=== PATIENT | male | born 1985 | race African-American/Black ===

== ENCOUNTER 2025-02-10 14:43 | Observation (INO) | payer OTHER ==
[~2025-02-10] VITALS: Ht 193 cm; Wt 92.6 kg
[2025-02-10 15:50] LABS: BASO # 0.0 10^3/uL (0.0-0.2); BASO % 0.5 % (0.0-1.0); EOS # 0.0 10^3/uL (0.0-0.5); EOS % 0.5 % (0.0-3.0); LYMPH # 1.1 10^3/uL (1.5-5.0); LYMPH % 27.0 % (24.0-44.0); MONO # 0.3 10^3/uL (0.0-0.8); MONO % 8.4 % (2.0-8.0); NEUTROPHILS # 2.6 10^3/uL (1.5-8.5); NEUTROPHILS % 63.4 % (36.0-66.0); PLATELET COUNT, AUTOMATED 274 10^3/uL (150-450)
[2025-02-10 16:04] LABS: INR 1.11
[2025-02-10 16:16] LABS: ALT/SGPT 50 U/L (7.0-40); AST/SGOT 37 U/L (<34); CALCIUM LEVEL 9.4 MG/DL (8.5-10.1); CARBON DIOXIDE LEVEL 26 MMOL/L (20-31); CHLORIDE LEVEL 104 MMOL/L (98-107); CREATININE FOR GFR 0.95 MG/DL (0.70-1.30); GLOMERULAR FILTRATION RATE > 90.0 (>60); POTASSIUM SERUM 3.8 MMOL/L (3.5-5.1); SODIUM LEVEL 138 MMOL/L (136-145)
[2025-02-10 16:36] LABS: LDH LACTATE DEHYDROGENASE 208 U/L (120-246)
[2025-02-10 16:47] LABS: IRON (FE) 70 UG/DL (65-175); PERCENT SATURATION 27.2 % (19.7-50.0)
[2025-02-10 16:50] LABS: VITAMIN B12 LEVEL 528 PG/ML (211-911)
[2025-02-10 17:16] LABS: SICKLE CELL SCREEN POSITIVE (NEGATIVE)
[2025-02-10] MEDS ORDERED: HOME MED LIST COMPLETE! XX SCH (17:30)
[2025-02-10] MEDS ORDERED: ACETAMINOPHEN 325 MG TAB PO PRN (17:45)
[2025-02-10] MEDS ORDERED: MOM 30 ML SUSPENSION UDC PO PRN (17:45)
[2025-02-10] MEDS ORDERED: MAALOX 30 ML SUSP *UDC PO PRN (17:45)
[2025-02-10 18:47] LABS: C REACTIVE PROTEIN QUANTITATIV < 0.50 MG/DL (<1.0); CPK CREATINE PHOSPHOKINASE 63 U/L (46-171)
[2025-02-10 19:28] LABS: HEPATITIS C VIRUS ABY INDEX 0.03 INDEX (<0.8)
[2025-02-10 19:45] VITALS: BP 135/73; TEMP 97.2; O2SAT 98
[2025-02-10] MEDS: DOCUSATE SODIUM 100 MG CAPSULE PO SCH (20:11)
[2025-02-11 00:01] VITALS: BP 112/56; TEMP 97.7; O2SAT 99
[2025-02-11 04:30] VITALS: BP 118/70; TEMP 97.3; O2SAT 100
[2025-02-11 06:08] LABS: BASO # 0.0 10^3/uL (0.0-0.2); BASO % 0.2 % (0.0-1.0); EOS # 0.0 10^3/uL (0.0-0.5); EOS % 0.0 % (0.0-3.0); LYMPH # 0.5 10^3/uL (1.5-5.0); LYMPH % 12.7 % (24.0-44.0); MONO # 0.0 10^3/uL (0.0-0.8); MONO % 0.9 % (2.0-8.0); NEUTROPHILS # 3.7 10^3/uL (1.5-8.5); NEUTROPHILS % 86.0 % (36.0-66.0); PLATELET COUNT, AUTOMATED 320 10^3/uL (150-450)
[2025-02-11 06:31] LABS: APPEARANCE, URINE CLEAR (CLEAR); BACTERIA, URINE AUTO NEGATIVE (NEGATIVE); BILIRUBIN, URINE AUTO NEGATIVE (NEGATIVE); BLOOD, URINE BLOOD NEGATIVE (NEGATIVE); GLUCOSE, URINE (UA) AUTO 1+ mg/dL (NEGATIVE); KETONE, URINE AUTO NEGATIVE (NEGATIVE); LEUKOCYTE ESTERASE, URINE AUTO NEGATIVE (NEGATIVE); MUCUS, URINE SMALL (NEGATIVE); NITRITE, URINE AUTO NEGATIVE (NEGATIVE); PROTEIN, URINE AUTO NEGATIVE (NEGATIVE); RBC, URINE AUTO 0 /HPF (0-3); SPECIFIC GRAVITY URINE AUTO 1.013 (1.002-1.035); SQUAMOUS EPITHELIAL CELL UR AU 0 /HPF (0-6); UROBILINOGEN, URINE AUTO 2.0 mg/dL (0.0-2.0); WBC, URINE AUTO 1 /HPF (0-3)
[2025-02-11 06:31] LABS: C REACTIVE PROTEIN QUANTITATIV < 0.50 MG/DL (<1.0)
[2025-02-11 06:36] VITALS: BP 117/69; TEMP 97.2; O2SAT 97
[2025-02-11 06:36] LABS: ALT/SGPT 48 U/L (7.0-40); AST/SGOT 31 U/L (<34); CALCIUM LEVEL 9.7 MG/DL (8.5-10.1); CARBON DIOXIDE LEVEL 23 MMOL/L (20-31); CHLORIDE LEVEL 103 MMOL/L (98-107); CREATININE FOR GFR 0.91 MG/DL (0.70-1.30); GLOMERULAR FILTRATION RATE > 90.0 (>60); MAGNESIUM LEVEL 1.9 MG/DL (1.8-2.4); POTASSIUM SERUM 4.0 MMOL/L (3.5-5.1); SODIUM LEVEL 135 MMOL/L (136-145)
[2025-02-11] MEDS ORDERED: FOLI1TAB11 PO (09:30)
[2025-02-11] MEDS: NS (Normal Saline) 0.9% 1,000 ML IV ONE (09:37)
[2025-02-11] MEDS: FOLIC ACID 1 MG TAB PO SCH (09:38)
[2025-02-11] MEDS: FLUZONE VACCINE TRI PF(25-26) 0.5ML SYRINGE IM.IMMUN ONE (11:14)
== END 2025-02-11 16:05 | disposition home or self-care (01) ==
LOC: M ED 14:43 → M ED INP 14:46 → M PCU 19:35
PROVIDERS: ADMIT Internal Medicine; ATTEND Internal Medicine
DX: D58.9 Hereditary hemolytic anemia, unspecified (principal); E80.6 Other disorders of bilirubin metabolism; R74.01 Elevation of levels of liver transaminase levels; R00.2 Palpitations
CPT/HCPCS: 36415; 76705; 80048; 80074; 80076; 81001; 82550; 82607; 82728; 82746; 82955; 83010; 83020; 83550; 83615; 83690; 83735; 84443; 85025; 85046; 85610; 85652; 85660; 85730; 86140; 86850; 86880; 86900; 86901; 90656; 93005; 93041; 93306; 96374; 96376; 99285; G0008; J2919

== ENCOUNTER → 2025-02-15 | Outpatient (CLI) | payer OTHER ==
[~2025-02-15] MED LIST: FOLI1TAB11 PO
[2025-02-15 12:14] LABS: PLATELET COUNT, AUTOMATED 297 10^3/uL (150-450)
== END ==
LOC: M LAB 11:07
PROVIDERS: ATTEND Internal Medicine
DX: D64.9 Anemia, unspecified (principal)